=== PATIENT | male | born 1945 | race Caucasian/White ===

== ENCOUNTER → 2016-04-23 | Outpatient (CLI) | payer MEDICARE, OTHER ==
[~2016-04-23] MED LIST: APRESOLINE-DPS25 MG PO; CARAFATE DPS1 GM PO; CHLORASEPTIC SPR6 OZ PO; CLARITHROMYCIN500 MG PO; CLARITIN DPS10 MG PO; COMPAZINE10 MG PO; CORDARONE DPS200 MG PO; DELTASONE DPS10 MG PO; DOCUSATE CALCI240 MG PO; DUONEB DPS3 ML IH; DURAGESIC-1212 MCG TP; FEOSOL-DPS325 MG PO; FLEXERIL-DPS10 MG PO; HABITROL DPS21 MG TD; HYDROCODONE 10M10 MG PO; HYDROCODONE 7.7.5 MG PO; HYDRODIURIL-DPS25 MG PO; KLOR-CON M2020 ME1 PO; LASIX DPS20 MG PO; LEVAQUIN DPS500 MG PO; LIDOCAINE VISCO15 ML PO; LOPRESSOR DPS50 MG PO; MAALOX DPS30 ML PO; MAGNESIUM500 MG PO; MARYS PO; MELATIN3 MG PO; MELATONIN3 MG PO; METOPROLOL TART25 MG PO; MILK OF MAGNESI10 ML PO; MIRALAX PACKET17 GM PO; MUCINEX600 MG PO; NOLVADEX DPS20 MG PO; NORVASC DPS10 MG PO; PRILOSEC DPS20 MG PO; PROTONIX40 MG PO; REQUIP DPS2 MG PO; SENOKOT DPS8.6 MG PO; SENOKOT S1 TAB PO; SURFAK DPS240 MG PO; SYMBICORT160 MCG/6 IH; TYLENOL DPS325 MG PO; VASOTEC DPS10 MG PO; VITAMIN D31000 UNIT PO; ZANTAC DPS150 MG PO
== END | disposition home or self-care (01) ==
LOC: RAD.S 07:46 → EDSTATUS 08:00 → RAD.S 08:00
PROC: 0W9G3ZZ Drainage of Peritoneal Cavity, Percutaneous Approach (ICD-10-PCS; principal; 2016-04-23)
DX: R18.8 Other ascites (principal); C34.31 Malignant neoplasm of lower lobe, right bronchus or lung; I78.0 Hereditary hemorrhagic telangiectasia; D50.0 Iron deficiency anemia secondary to blood loss (chronic); C79.51 Secondary malignant neoplasm of bone; J90 Pleural effusion, not elsewhere classified

== ENCOUNTER 2016-04-27 18:41 | Inpatient (IN) | payer MEDICARE, OTHER ==
[~2016-04-27] VITALS: Ht 167.6 cm; Wt 43.3 kg
--- NOTE | 2016-04-28 19:43 | ER ---
ADMIT: 04/27/2016 RM/LOC: 524 [facility] MR#: [id number] [address] [facility] [address] [place], [place] [address] [place], [place] [id number] Emergency Room Report SEX: M AGE: 70 : 1945 DATE: 04/27/2016 TIME: 1840 Please refer to my T-sheet for complete H and P. HISTORY OF PRESENT ILLNESS: Briefly, the patient is a 70-year-old who has the unfortunate history of having end-stage small cell lung CA. Apparently, he has been at home just doing poorly, kind of going downhill, general weakness. His legs have been hurting. They have been talking to Dr. Doty almost daily for the last 3 days, was seen in the clinic twice last week by Dr. Doty, he called here. Apparently, the patient is a candidate for hospice, but has not had a set up at home. Dr. Doty does not know of any other interventions that are indicated for treatment of his small cell at this time as he has now failed to respond to the most recent ones. He is a DNR/DNI, mostly he was brought in for comfort measures. They do not want a lot done. They just want him comfortable and there were concerned about taking care of him at home. PHYSICAL EXAMINATION: VITAL SIGNS: Blood pressure 145/91, pulse 154, respirations 16, temp 97.7, saturating 97%. GENERAL: He is lethargic. HEENT: Very icteric conjunctiva. Mucous membranes are dry. LUNGS: Coarse. HEART: Tachy, irregularly irregular. ABDOMEN: Really soft. They had just removed some fluid recently, does not seem distended. SKIN: He is a very icteric appearing. NEURO: He does respond, but sluggish at this time. EMERGENCY DEPARTMENT COURSE: We established an IV. Gave him a liter of fluid. We will titrate morphine as needed. I had a long discussion with the family. Dr. Doty and Dr. Guzman, we decided to make him comfort measures only. We did do some blood tests. His CBC was normal except hemoglobin 12, platelets 42. Chemistries normal except sodium 144, potassium 5.8, BUN 75, ADMIT: 04/27/2016 RM/LOC: 524 [facility] MR#: [id number] [address] [address] [place] [address] Emergency Room Report SEX: M AGE: 70 : 1945 creatinine 2.5. His total bilirubin was 2.7, alkaline phosphatase was 257. AST 182, ALT 136. Mag was normal. The family wishes are pretty straight forward. They want him very comfortable. They reaffirmed DNR/DNI. I seem comfortable with this as does Dr. Guzman and Lalitha, we will admit though for comfort measures. ASSESSMENT: 1. General weakness. 2. End-stage small cell lung cancer. 3. Comfort only, do not resuscitate/do not intubate. PLAN: Admit to the hospital. Crispin Clay MD/ jaquelinel JOB #: [id number] CC: Lewis Guzman MD, Attending Physician Lewis Guzman MD, Family Physician
--- NOTE | 2016-05-06 11:29 | HP ---
ADMIT: 04/27/2016 RM/LOC: 524 [facility] MR#: [id number] 26[address] [facility] [address] [place], [place] [address] [address] [place], [place] [address] History and Physical SEX: M AGE: 70 : 1945 DATE OF SERVICE: CHIEF COMPLAINT/HISTORY OF PRESENT ILLNESS: This 70-year-old male was seen in the emergency room because he had gotten progressively weaker and he was unable to be cared for at home. The patient is scheduled to be hospice. His major problem has been that of end-stage metastatic carcinoma of the lung with bone metastases, liver metastases, not responding to chemotherapy. The patient has had well documented carcinoma and has been followed by the oncologist with aggressive therapy. In spite of this, he has continued to deteriorate with progressive weakness where he was unable to be cared for at home. The patient was admitted for care and comfort measures and was initially seen in the emergency room. PREVIOUS MEDICAL HISTORY: General health has been poor. He has had a number of problems. ALLERGIES: INCLUDE PENICILLIN AND ASPIRIN. MEDICATIONS: Include morphine. SOCIAL HISTORY: The patient had been a smoker almost all of his life. He is , recently retired. FAMILY HISTORY: Unremarkable. REVIEW OF SYSTEMS: HEENT: The patient wears glasses. CARDIORESPIRATORY: The patient has been a long-standing smoker, he has severe COPD. He has end-stage small cell carcinoma of the lung with metastases to bone and liver. He has ascites and has progressively worsened in spite of chemotherapy. He has also had a history of hypertension. GI: No vomiting, diarrhea, or bloody stools recently. : Patient has had has some abnormal renal function tests. METABOLIC/ENDOCRINE: No history of thyroid disease. He has had worsening liver function because of the tumor. MUSCULOSKELETAL: Patient has increasing bone pain secondary to widespread bone metastases from the tumor and chronic pain. HEMATOPOIETIC: The patient has a history of hereditary hemorrhagic telangiectasia and has been treated in the past with iron and he has had bleeding problems with chronic anemia. PHYSICAL EXAMINATION: VITAL SIGNS: Blood pressure is 145/91, pulse of 154 irregular, respirations 16, temperature 97.7. GENERAL: He was quite lethargic. HEENT: Reveals icterus. Dry mucous membranes. ADMIT: 04/27/2016 RM/LOC: 524 [facility] MR#: [id number] [address] [address] [address] [place] [address] History and Physical SEX: M AGE: 70 : 1945 LUNGS: Sounds are coarse. HEART: There is an irregular rate and rhythm with tachycardia present. ABDOMEN: Soft. SKIN: Icteric. NEUROLOGICAL: The patient has sluggish responses. ASSESSMENT: 1. End-stage metastatic small-cell carcinoma lung with bone and liver metastases. 2. Severe chronic obstructive pulmonary disease. 3. Hereditary hemorrhagic telangiectasia. 4. Renal insufficiency with dehydration. Lewis Guzman MD/ [place] JOB #: [id number] CC: Lewis Guzman MD, Attending Physician Lewis Guzman MD, Family Physician
--- NOTE | 2016-05-06 11:29 | DS ---
ADMIT: 04/27/2016 RM/LOC: 524 [facility] MR#: [id number] [address] [facility] [address] [place] [id number] [place] [address] Discharge Summary SEX: M AGE: 70 : 1945 ADMISSION DATE: 04/27/2016 DISCHARGE DATE: 04/28/2016 SUMMARY HISTORY AND PHYSICAL: Please see the chart. LABORATORY AND X-RAY DATA: Please refer to the laboratory and x-ray summaries on the medical record. CLINICAL COURSE: This patient was admitted for care and comfort measures. He had intensive consultation with the oncologist even over the last few days. He was scheduled for hospice and the main goal was to keep the patient comfortable with no aggressive treatments. He did have abnormal x-ray, chest x-ray, abnormal liver function. The patient was given IV fluids. Primary for consult. He was also given morphine and he proceeded to deteriorate and . CAUSE OF : The cause of is: 1. Metastatic small cell carcinoma of the lung with diffuse metastases. 2. Severe COPD (chronic obstructive pulmonary disease). 3. Hereditary hemorrhagic telangiectasia. 4. Penicillin allergy. 5. Renal insufficiency. Lewis Guzman MD/ njv JOB #: [id number] CC: Lewis Guzman MD, Attending Physician Lewis Guzman MD, Family Physician
== END 2016-04-28 06:22 | disposition expired | DRG 181 ==
LOC: ER 18:41 → 5MS 19:10
PROC: 02HV33Z Insertion of Infusion Device into Superior Vena Cava, Percutaneous Approach (ICD-10-PCS; principal; 2016-04-27)
DX: C34.90 Malignant neoplasm of unspecified part of unspecified bronchus or lung (principal); C79.51 Secondary malignant neoplasm of bone; C78.7 Secondary malignant neoplasm of liver and intrahepatic bile duct; I78.0 Hereditary hemorrhagic telangiectasia; R18.8 Other ascites; Z51.5 Encounter for palliative care; E86.0 Dehydration; D63.0 Anemia in neoplastic disease; F17.200 Nicotine dependence, unspecified, uncomplicated; J44.9 Chronic obstructive pulmonary disease, unspecified; I10 Essential (primary) hypertension; G89.3 Neoplasm related pain (acute) (chronic); Z66 Do not resuscitate